=== PATIENT | female | born 1990 | race Caucasian/White ===

== ENCOUNTER → 2017-03-08 | Outpatient (CLI) | payer OTHER ==
--- NOTE | 2017-03-16 11:48 | REP ---
Clinical: Left lower quadrant pain . Technique: Transabdominal pelvic ultrasound followed by transvaginal examination for better evaluation of the endometrium and adnexa with color Doppler evaluation of the ovaries. Findings: Bladder is unremarkable and measures 9.0 x 6.4 x 6.3 cm . Normal anteverted uterus measures 7.8 x 4.0 x 4.3 cm . The endometrial complex measures 7.6 mm thickness. No discrete uterine or endometrial abnormalities are appreciated. Bilateral ovaries demonstrate normal vascularity without torsion. The right ovary is normal in appearance and measures 3.5 x 1.6 x 1.4 cm; RI = 0.59. Left ovary measures 4.7 x 3.8 x 3.8 cm and includes 3.3 cm hemorrhagic cyst and 3.3 cm simple cyst; RI = 0.63. Trace free fluid is nonspecific. No adnexal mass lesion. Impression: 1. 3.3 cm left hemorrhagic cyst and 3.3 cm left simple physiologic cyst. 2. Otherwise normal pelvic ultrasound. No torsion. Signed by David Huntley MD 03/16/2017 11:40 A
== END ==
LOC: M RAD 12:33
PROVIDERS: ATTEND Nurse Practitioner Women's Health
DX: R10.32 Left lower quadrant pain (principal); N83.202 Unspecified ovarian cyst, left side

== ENCOUNTER → 2017-03-29 | Outpatient (REF) | payer OTHER ==
[2017-03-29 16:19] LABS: BASO # 0.1 10^3/uL (0.0-0.2); BASO % 0.6 % (0.0-1.0); EOS # 0.1 10^3/uL (0.0-0.50); EOS % 1.5 % (0.0-3.0); IMMATURE GRANULOCYTE % 0.5 % (0-0); LYMPH # 3.2 10^3/uL (1.5-6.5); LYMPH % 38.5 % (24.0-44.0); MEAN CORPUSCULAR HEMOGLOBIN 30.6 pg (27.0-33.0); MEAN CORPUSCULAR HGB CONC 33.9 g/dl (32.0-36.5); MEAN CORPUSCULAR VOLUME 90.3 fl (80.0-96.0); MONO # 0.5 10^3/uL (0.0-0.8); MONO % 6.5 % (0.0-5.0); NEUTROPHILS # 4.3 10^3/uL (1.8-7.7); NEUTROPHILS % 52.4 % (36.0-66.0); PLATELET COUNT, AUTOMATED 290 10^3/uL (150-450); RED CELL DISTRIBUTION WIDTH 12.5 % (11.5-14.5); WHITE BLOOD COUNT 8.2 10^3/uL (4.0-10.0)
== END ==
LOC: M SFHCPLAZ 13:48
PROVIDERS: ATTEND Nurse Practitioner Family
DX: K62.5 Hemorrhage of anus and rectum (principal)

== ENCOUNTER → 2017-04-27 | Outpatient (REF) | payer OTHER ==
[2017-04-27 13:01] LABS: CONTROL LINE HCG INT CTR LINE PRESENT
== END ==
LOC: M SFHCPLAZ 11:17
DX: N91.2 Amenorrhea, unspecified (principal)

== ENCOUNTER → 2017-12-16 | Outpatient (CLI) | payer OTHER ==
[2017-12-16 17:32] LABS: BASO % 0.2 % (0.0-1.0); EOS # 0.1 10^3/uL (0.0-0.50); EOS % 0.8 % (0.0-3.0); HEMATOCRIT 32.2 % (36.0-47.0); IMMATURE GRANULOCYTE % 0.5 % (0-3.0); LYMPH # 1.5 10^3/uL (1.5-6.5); LYMPH % 17.4 % (24.0-44.0); MEAN CORPUSCULAR HEMOGLOBIN 31.3 pg (27.0-33.0); MEAN CORPUSCULAR HGB CONC 34.2 g/dl (32.0-36.5); MEAN CORPUSCULAR VOLUME 91.7 fl (80.0-96.0); MONO # 0.4 10^3/uL (0.0-0.8); MONO % 4.6 % (0.0-5.0); NEUTROPHILS # 6.4 10^3/uL (1.8-7.7); NEUTROPHILS % 76.5 % (36.0-66.0); PLATELET COUNT, AUTOMATED 252 10^3/uL (150-450); RED BLOOD COUNT 3.51 10^6/uL (4.00-5.40); RED CELL DISTRIBUTION WIDTH 14.5 % (11.5-14.5); WHITE BLOOD COUNT 8.3 10^3/uL (4.0-10.0)
[2017-12-16 20:48] LABS: CHLAMYDIA DNA AMPLIFICATION NEGATIVE (NEGATIVE); GC DNA AMPLIFICATION NEGATIVE (NEGATIVE)
[2017-12-17 10:58] LABS: RUBELLA IgG QUALITATIVE IMMUNE (IMMUNE)
[2017-12-17 11:04] LABS: HBsAg Prenatal NEGATIVE (NEGATIVE)
[2017-12-17 11:30] LABS: HEPATITIS C VIRUS ABY INDEX 0.1 INDEX (<0.8)
[2017-12-17 11:31] LABS: HIV 1&2 SCREEN CENTAUR NEGATIVE (NEGATIVE)
== END ==
LOC: M WUC 13:26
DX: Z34.81 Encounter for supervision of other normal pregnancy, first trimester (principal); Z3A.13 13 weeks gestation of pregnancy

== ENCOUNTER → 2017-12-17 | Outpatient (CLI) | payer OTHER, SELFPAY | LOC: M RAD 09:23 | DX: Z34.92 Encounter for supervision of normal pregnancy, unspecified, second trimester (principal); Z36.89 Encounter for other specified antenatal screening; Z3A.18 18 weeks gestation of pregnancy | CPT/HCPCS: 76811 ==

== ENCOUNTER → 2018-01-07 | Outpatient (CLI) | payer OTHER | LOC: M RAD 10:55 | DX: Z34.82 Encounter for supervision of other normal pregnancy, second trimester (principal); Z3A.20 20 weeks gestation of pregnancy ==

== ENCOUNTER → 2018-02-05 | Outpatient (CLI) | payer OTHER ==
[2018-02-05 10:37] LABS: BASO % 0.6 % (0.0-1.0); EOS # 0.1 10^3/uL (0.0-0.50); EOS % 0.7 % (0.0-3.0); HEMATOCRIT 32.8 % (36.0-47.0); HEMOGLOBIN 11.2 g/dl (12.0-15.5); IMMATURE GRANULOCYTE % 0.6 % (0-3.0); LYMPH # 1.4 10^3/uL (1.5-6.5); LYMPH % 19.8 % (24.0-44.0); MEAN CORPUSCULAR HEMOGLOBIN 32.6 pg (27.0-33.0); MEAN CORPUSCULAR HGB CONC 34.1 g/dl (32.0-36.5); MEAN CORPUSCULAR VOLUME 95.3 fl (80.0-96.0); MONO # 0.3 10^3/uL (0.0-0.8); MONO % 4.8 % (0.0-5.0); NEUTROPHILS # 5.2 10^3/uL (1.8-7.7); NEUTROPHILS % 73.5 % (36.0-66.0); PLATELET COUNT, AUTOMATED 243 10^3/uL (150-450); RED BLOOD COUNT 3.44 10^6/uL (4.00-5.40); RED CELL DISTRIBUTION WIDTH 14.2 % (11.5-14.5); WHITE BLOOD COUNT 7.1 10^3/uL (4.0-10.0)
[2018-02-05 11:00] LABS: GLUCOSE CHALLENGE TEST 1 HOUR 133 MG/DL (LESS THAN 140)
== END ==
LOC: M LAB 08:23
DX: Z34.82 Encounter for supervision of other normal pregnancy, second trimester (principal); Z3A.00 Weeks of gestation of pregnancy not specified
CPT/HCPCS: 82950

== ENCOUNTER → 2018-02-13 | Outpatient (CLI) | payer OTHER ==
[2018-02-13 09:44] LABS: GLUCOSE, FASTING 83 MG/DL (LESS THAN 95)
[2018-02-13 11:10] LABS: 2 HR GLUCOSE 153 MG/DL (LESS THAN 155)
[2018-02-13 11:11] LABS: 1 HR GLUCOSE 181 MG/DL (LESS THAN 180)
[2018-02-13 12:40] LABS: 3 HR GLUCOSE 60 MG/DL (LESS THAN 140)
== END ==
LOC: M LAB 08:24
DX: Z34.83 Encounter for supervision of other normal pregnancy, third trimester (principal); Z3A.00 Weeks of gestation of pregnancy not specified
CPT/HCPCS: 82951

== ENCOUNTER → 2018-03-11 | Outpatient (CLI) | payer OTHER | LOC: M LDO 12:55 | DX: O26.893 Other specified pregnancy related conditions, third trimester (principal); N89.8 Other specified noninflammatory disorders of vagina; Z3A.29 29 weeks gestation of pregnancy | CPT/HCPCS: 76815 ==

== ENCOUNTER → 2018-04-26 | Outpatient (REF) | payer OTHER ==
[~2018-04-26] MED LIST: MAPA500T2 PO; PRENTAB9 PO
== END ==
LOC: M LAB REF 12:53
PROVIDERS: ATTEND Obstetrics & Gynecology
DX: Z34.83 Encounter for supervision of other normal pregnancy, third trimester (principal)

== ENCOUNTER 2018-05-28 10:14 | Inpatient (IN) | payer OTHER ==
[~2018-05-28] VITALS: Ht 162.6 cm; Wt 103.1 kg
[2018-05-28] VITALS (19 sets, daily range): BP systolic 94–156; BP diastolic 51–66
[2018-05-28 14:11] LABS: HEMATOCRIT 36.7 % (36.0-47.0); HEMOGLOBIN 12.3 g/dl (12.0-15.5); MEAN CORPUSCULAR HEMOGLOBIN 31.9 pg (27.0-33.0); MEAN CORPUSCULAR HGB CONC 33.5 g/dl (32.0-36.5); MEAN CORPUSCULAR VOLUME 95.3 fl (80.0-96.0); PLATELET COUNT, AUTOMATED 213 10^3/uL (150-450); RED BLOOD COUNT 3.85 10^6/uL (4.00-5.40); WHITE BLOOD COUNT 11.2 10^3/uL (4.0-10.0)
[2018-05-28] MEDS ORDERED: TUMS500C PO (15:54)
--- NOTE | 2018-05-28 18:48 | HPE ---
DATE OF ADMISSION: 05/28/2018 REASON FOR ADMISSION: Labor, premature rupture of membranes. HISTORY OF THE PRESENT ILLNESS: Mrs. Lopez is a 28-year-old 1, para 0, who presents at 40 weeks 6 days estimated gestational age by mid-trimester ultrasound with complaints of leakage of fluid. She reports leakage of fluid early this morning that has continued, along with some irregular contractions. She reports active movement. Denies any vaginal bleeding. Her course is only remarkable for late entry to care at approximately 16 weeks, otherwise it has been uncomplicated. She has had her visits following her initial appointment. PAST MEDICAL HISTORY: None. PAST SURGICAL HISTORY: Appendectomy and knee surgery. MEDICATIONS: Include vitamins. She has no known drug allergies. SOCIAL HISTORY: Denies any alcohol, tobacco, or drug use during her . PHYSICAL EXAMINATION: Vital signs are stable. She is afebrile. Category 1 heart rate tracing with contractions on tocometer. General appearance: Well appearing, in no acute distress. Her lungs are clear to auscultation bilaterally. Cardiovascular: Heart regular rate and rhythm. Her abdomen is gravid, nontender. Estimated weight 3800 grams. Cervical Exam: She is 1-2 cm dilated, 50% effaced, -2 station, grossly ruptured. LABORATORY: Her labs - blood type is A positive, antibody screen is negative. Rubella is immune. RPR is nonreactive. Hepatitis surface antigen is negative. HIV is negative. Hepatitis C is nonreactive. Chlamydia and gonorrhea screen is negative. She had an elevated 1-hour Glucola with a normal 3-hour glucose tolerance test, and she is GBS negative. ASSESSMENT: 1. Mrs. Lopez is a 28-year-old 1, para 0 at 40 weeks 6 days estimated gestational age with premature rupture of membranes. 2. Reassuring status. PLAN: 1. Admit to labor and delivery. CBC, RPR, type and screen. 2. Patient has been thoroughly counseled in regards to her diagnosis. I discussed medications as well as procedures performed in labor and delivery. We have discussed augmentation of labor, as well as she has been verbally consented for emergency surgery, blood products, anesthesia, and desires to proceed with admission.
[2018-05-28] MEDS ORDERED: OXYTOCIN DRIP 30 UNITS in APPROPRIATE DILUENT 1 EA IV SCH (20:00)
[2018-05-28] MEDS: LR 1,000 ML IV SCH (20:27)
[2018-05-28] MEDS ORDERED: BUTORPHANOL 2 MG/ML INJ (J0595) IV ONE (23:00)
[2018-05-28] MEDS ORDERED: PROMETHAZINE INJ 25 MG/ML VIAL (J2550) IV PRN (23:00)
[2018-05-29] VITALS (48 sets, daily range): BP systolic 83–124; BP diastolic 44–80
[2018-05-29] MEDS: LR 1,000 ML IV SCH ×4 (09:16→22:18)
[2018-05-29] MEDS ORDERED: BUTORPHANOL 2 MG/ML INJ (J0595) As Ordered ONE (12:54)
[2018-05-29] MEDS ORDERED: PROMETHAZINE INJ 25 MG/ML VIAL (J2550) IV ONE (13:00)
[2018-05-29] MEDS ORDERED: BUTORPHANOL 2 MG/ML INJ (J0595) IV ONE (13:00)
--- NOTE | 2018-05-29 16:07 | IPNPDOC ---
Obstetrical Progress Note Date of Service May 29, 2018 Subjective Patient reports she is coping with her contractions with Stadol and Phenergan at this time. Objective Vital Signs Date Time Temp Pulse Resp B/P (MAP) Pulse Ox O2 Delivery O2 Flow Rate FiO2 05/29/18 13:26 52 16 91/49 05/29/18 13:09 97.6 98 Assessment Heart Rate (FHR): 120 Variability: Moderate Accelerations: Positive Decelerations: None Heart Rate Tracing: Category I Tocometer Contractions: Yes Frequency: other (2-4 minutes) Sterile Vaginal Examination Dilation: 3 cm Effacement (%): 90% Station: -2 Cervical Consistency: Soft Cervical Position: Anterior Postion/Presentation: Cephalic presentation Assessment and Plan Age: 28 : 1 Term: 0 Pre-term: 0 Abortions: 0 Livin EGA at Admission: 40.4 Status: Reassuring Group B Streptococcus: Negative Anticipate: Vaginal Delivery Additional Comments Pitocin at 12 mu/min. Vaginal exam done at 1130. Forebag rupture to a large amount of clear fluid. RODRIGO LEE CNM May 29, 2018 16:07
--- NOTE | 2018-05-29 18:26 | IPNPDOC ---
Obstetrical Progress Note Date of Service May 29, 2018 Subjective Patient requesting an epidural. Objective Vital Signs Date Time Temp Pulse Resp B/P (MAP) Pulse Ox O2 Delivery O2 Flow Rate FiO2 05/29/18 16:27 97.9 56 16 100/59 (73) 05/29/18 13:09 98 Assessment Heart Rate (FHR): 120 Variability: Moderate Accelerations: Positive Decelerations: None Heart Rate Tracing: Category I Tocometer Contractions: Yes Frequency: regular Strength: palpated as mild Sterile Vaginal Examination Dilation: 4 cm Effacement (%): 90% Station: -2 Cervical Consistency: Soft Cervical Position: Anterior Postion/Presentation: Cephalic presentation Assessment and Plan Age: 28 : 1 Term: 0 Pre-term: 0 Abortions: 0 Livin EGA at Admission: 40.6 Weeks & Days 41.0 weeks today. Status: Reassuring Group B Streptococcus: Negative Additional Comments Pitocin at 12 mu/min. Moderate amount of meconium fluid noted now. Patient is a very difficult exam and doesn't tolerate a cervical exam well. RODRIGO LEE CNM May 29, 2018 18:26
[2018-05-29] MEDS ORDERED: FENTANYL 2MCG/ML ROPIVACAINE 0.2% IN 0.9% NACL 100ML IVBAG As Ordered ONE (18:31)
[2018-05-29] MEDS ORDERED: EPIDURAL COMMENT XX SCH (20:15)
[2018-05-29] MEDS ORDERED: ePHEDrine SULFATE 25 MG/5 ML(5MG/ML) SYRINGE IV PRN (20:15)
[2018-05-29] MEDS ORDERED: FENTANYL/ROPIVACAINE/NACL BAG 100 ML EPIDURAL SCH (20:15)
[2018-05-29] MEDS ORDERED: diphenhydrAMINE INJ 50MG/ML VIAL (J1200) IV PRN (20:15)
[2018-05-29] MEDS ORDERED: NALOXONE INJ 0.4 MG/1 ML VIAL (J2310) IV PRN (20:15)
[2018-05-29] MEDS ORDERED: EPIDURAL/PCA KEYS XX PRN (20:15)
[2018-05-29] MEDS ORDERED: REFRIGERATOR IV KEYS XX PRN (20:15)
[2018-05-29] MEDS ORDERED: LACTATED RINGER'S 1000 ML IV PRN (20:15)
[2018-05-29] MEDS ORDERED: ONDANSETRON 4MG/2ML VIAL (J2405) IV PRN ×3 (20:15→22:45)
[2018-05-29] MEDS ORDERED: ceFAZolin 2 GM/D5W 50 ML IV BAG (J0690 PER 500MG) As Ordered ONE (21:09)
[2018-05-29] MEDS ORDERED: BICITRA 30ML SOLN UDC As Ordered ONE (21:09)
[2018-05-29] MEDS ORDERED: LIDOCAINE 2% W/EPIN INJ 20ML **PRES FREE As Ordered ONE (21:16)
[2018-05-29] MEDS ORDERED: ONDANSETRON 4MG/2ML VIAL (J2405) As Ordered ONE (21:19)
[2018-05-29] MEDS ORDERED: OXYTOCIN INJ 10 UNITS/ML VIAL (J2590) As Ordered ONE (21:19)
[2018-05-29] MEDS ORDERED: MORPHINE PRES-FREE INJ 10 MG/10 ML VIAL (J2274) As Ordered ONE (21:40)
[2018-05-29] MEDS ORDERED: SODIUM BICARBONATE 8.4% INJ 50 ML SYRINGE As Ordered ONE (21:44)
[2018-05-29] MEDS ORDERED: PHENYLephrine HCL 500 MCG/5 ML (100MCG/ML) SYRINGE (J2370) As Ordered ONE (21:48)
[2018-05-29] MEDS ORDERED: fentaNYL 100 MCG/2 ML INJECTION (J3010) As Ordered ONE (21:48)
[2018-05-29] MEDS ORDERED: OXYTOCIN 30 UNITS IN 0.9% NaCl 500ML IV BAG (J2590) As Ordered ONE (21:49)
[2018-05-29] MEDS ORDERED: KETOROLAC 60 MG/2 ML VIAL (J1885) As Ordered ONE (21:49)
[2018-05-29] MEDS ORDERED: OXYTOCIN DRIP 30 UNITS in APPROPRIATE DILUENT 1 EA IV SCH (22:18)
[2018-05-29] MEDS ORDERED: IBUP1TAB7 PO (22:21)
[2018-05-29] MEDS ORDERED: PERC5TAB12 PO (22:23)
[2018-05-29] MEDS ORDERED: RHOGAM 300 MCG (1500 IU) INJ (J2790) IM SCH (22:30)
[2018-05-29] MEDS ORDERED: KETOROLAC 30 MG/ML VIAL (J1885) IV SCH (22:30)
[2018-05-29] MEDS ORDERED: MEASLES,MUMPS,RUBELLA VACCINE INJ (MMR-II) (90707) SC SCH (22:30)
[2018-05-29] MEDS ORDERED: METHYLERGONOVINE MALEATE 0.2 MG/ML VIAL (J2210) IM PRN (22:30)
[2018-05-29] MEDS ORDERED: BICITRA 30ML SOLN UDC PO ONE (22:45)
[2018-05-29] MEDS ORDERED: NORCO, ANEXSIA 5/325MG TABLET (HYDROcodone/ACETAMINOPHEN) PO PRN (22:45)
[2018-05-29] MEDS ORDERED: fentaNYL 100 MCG/2 ML INJECTION (J3010) IV PRN (22:45)
--- NOTE | 2018-05-29 23:20 | RO ---
DATE OF PROCEDURE: 05/29/2018 PREPROCEDURE DIAGNOSIS: Term . Arrest of dilation. POSTPROCEDURE DIAGNOSIS: Term . Arrest of dilatation. PROCEDURE: Primary low transverse section. SURGEON: Malik Medrano MD TILT WALL SUPERVISOR: Goldie Barba CNM ANESTHESIA: Epidural. ESTIMATED BLOOD LOSS: About 600 mL. URINE OUTPUT: 250 mL FINDINGS: 8 pound 1 ounce, 3660 gram male , 8 and 9. Normal uterus, fallopian tubes and ovaries. OPERATIVE SUMMARY: The patient was taken to the operating room. When epidural anesthesia was adequate she was prepped and draped in a sterile fashion in the supine position. A Mclean catheter was already in place. A Pfannenstiel skin incision was made with a scalpel and continued through to the fascia. The fascia was nicked and extended. The fascia was dissected off the rectus muscles. Peritoneal cavity was entered. Bladder flap was created. A uterine incision was created in lower transverse fashion. This was extended manually The infant was delivered from the vertex position without difficulty. The cord was doubly clamped and cut. The was handed off to waiting nurses. The placenta was expressed. The uterus was exteriorized and cleared of clots and debris. Uterine incision was closed with #0 Vicryl in a running locked fashion. A second imbricated layer of #0 Vicryl was placed. The uterus was placed back in the abdominal cavity. Peritoneum was closed with #2-0 Vicryl in a running fashion. The fascia was closed with #0 Vicryl in a running fashion. The deep layer was irrigated and closed with ##2-0 chromic. Skin was closed with #4-0 Monocryl subcuticular sutures. Sponge, instrument and needle counts were correct. Goldie Barba CNM assisted with all aspects of the procedure from beginning to end. She assisted with creating all layers of the abdomen as well as hysterotomy. She assisted with expulsion of the fetus and closure of all subsequent layers. JODY
[2018-05-29] MEDS ORDERED: PERCOCET 5MG/325MG TAB As Ordered ONE (23:48)
[2018-05-29] MEDS: PERCOCET 5MG/325MG TAB PO PRN (23:51)
[2018-05-30 04:00] VITALS: BP 118/56
[2018-05-30] MEDS: KETOROLAC 30 MG/ML VIAL (J1885) IV SCH ×3 (04:37→16:02)
[2018-05-30] MEDS: PERCOCET 5MG/325MG TAB PO PRN (04:40)
[2018-05-30 07:02] LABS: HEMATOCRIT 28.1 % (36.0-47.0); HEMOGLOBIN 9.3 g/dl (12.0-15.5); MEAN CORPUSCULAR HEMOGLOBIN 32.2 pg (27.0-33.0); MEAN CORPUSCULAR HGB CONC 33.1 g/dl (32.0-36.5); MEAN CORPUSCULAR VOLUME 97.2 fl (80.0-96.0); PLATELET COUNT, AUTOMATED 175 10^3/uL (150-450); RED BLOOD COUNT 2.89 10^6/uL (4.00-5.40); WHITE BLOOD COUNT 12.6 10^3/uL (4.0-10.0)
[2018-05-30 07:25] VITALS: BP 108/51
[2018-05-30] MEDS: LR 1,000 ML IV SCH ×2 (08:20→14:18)
[2018-05-30] MEDS: PRENATAL VITAMINS CHEWABLE TABLET PO SCH (09:45)
[2018-05-30 11:37] VITALS: BP 111/58
[2018-05-30 16:04] VITALS: BP 102/58
[2018-05-30 18:07] VITALS: BP 117/65
[2018-05-30 22:26] VITALS: BP 115/53
[2018-05-31] MEDS: DOCUSATE SODIUM 100 MG CAP PO PRN (00:38)
[2018-05-31] MEDS: IBUPROFEN 800 MG TAB PO SCH ×4 (00:38→23:52)
[2018-05-31] MEDS: PERCOCET 5MG/325MG TAB PO PRN ×2 (00:55→14:39)
[2018-05-31] MEDS: PRENATAL VITAMINS CHEWABLE TABLET PO SCH (08:00)
[2018-05-31] MEDS: LR 1,000 ML IV SCH (11:55)
[2018-05-31] MEDS ORDERED: ONDANSETRON 4 MG TAB (S0181) PO PRN (15:45)
[2018-05-31 18:18] VITALS: BP 138/66
[2018-06-01] MEDS: DOCUSATE SODIUM 100 MG CAP PO PRN (02:00)
[2018-06-01] MEDS: PERCOCET 5MG/325MG TAB PO PRN (03:34)
[2018-06-01 06:12] VITALS: BP 106/59
--- NOTE | 2018-06-01 07:01 | DS.PDOC ---
Discharge Summary General Date of Admission May 28, 2018 at 13:23 Date of Discharge 06/01/18 Discharge Summary PROCEDURES PERFORMED DURING STAY: Primary section. ADMITTING DIAGNOSES: 1. PROM at term. DISCHARGE DIAGNOSES: 1. PROM at term 2. Arrest of dilation 3. Primary section COMPLICATIONS/CHIEF COMPLAINT: SROM. HISTORY OF PRESENT ILLNESS: 28yo G1 [place] 05/22/18. Admitted 05/28/18 with reports of rupture of membranes without labor. HOSPITAL COURSE: Pitocin augmentation of labor. Pt utilized an epidural for labor coping. A primary section was performed 05/29/18 for prolonged rupture of membranes and arrest of dilation and descent. She is OOB independently, tolerating a regular diet, voiding and passing flatus. DISCHARGE MEDICATIONS: Please see below. ALLERGIES: Please see below. PHYSICAL EXAMINATION ON DISCHARGE: VITAL SIGNS: Please see below. GENERAL: NAD HEENT: WNL NECK: Supple CARDIOVASCULAR EXAMINATION: HRR, normotensive RESPIRATORY EXAMINATION: Easy, clear ABDOMINAL EXAMINATION: Fundus firm, dressing intact EXTREMITIES: Equal strength and motion SKIN: Intact NEUROLOGICAL EXAMINATION: Intact PSYCHIATRIC EXAMINATION: Appropriate LABORATORY DATA: Please see below. PROGNOSIS: Good ACTIVITY: As tolerated DIET: Regular DISCHARGE PLAN: Home. Routine precautions. DISPOSITION: Home. DISCHARGE INSTRUCTIONS: 1. Routine precautions. Call with fever, N/V/chills foul lochia or wound exuda te. Remove dressing as instructed by surgeon. Nothing vaginally x 6wks. RTO 2wks and 6 wks DISCHARGE CONDITION: Stable Vital Signs/I&Os Vital Signs Date Time Temp Pulse Resp B/P (MAP) Pulse Ox O2 Delivery O2 Flow Rate FiO2 06/01/18 06:12 98.8 53 16 106/59 (75) 05/30/18 22:26 99 Discharge Medications Scheduled Multivitamins/ ( 27-0.8 mg) 1 Tab Tab, 1 TAB PO DAILY, (Reported) Scheduled PRN Calcium Carbonate (Tums) 500 Mg Chw, 2 TAB PO Q4H PRN for HEARTBURN, (Reported) Ibuprofen (Ibuprofen) 800 Mg Tab, 1 TAB PO TIDP PRN for PAIN Oxycodone/Acetaminophen (Percocet 5-325 mg) 1 Tab Tab, 1 TAB PO TIDP PRN for pain Allergies Coded Allergies: No Known Allergies (Unverified , 03/11/18) Ebony Gee CNM Jun 01, 2018 06:52
[2018-06-01] MEDS: IBUPROFEN 800 MG TAB PO SCH (07:54)
[2018-06-01] MEDS: PRENATAL VITAMINS CHEWABLE TABLET PO SCH (07:54)
[2018-06-01] MEDS ORDERED: OXYC1TAB23 PO (10:12)
== END 2018-06-01 11:40 | disposition home or self-care (01) | DRG 773 ==
LOC: M LDO 10:14 → M LDI 13:23 → M OBS 05-30 16:43
PROVIDERS: ADMIT Obstetrics & Gynecology; ATTEND Obstetrics & Gynecology
PROC: 10D00Z1 Extraction of Products of Conception, Low, Open Approach (ICD-10-PCS; principal; 2018-05-29 21:27)
DX: O42.02 Full-term premature rupture of membranes, onset of labor within 24 hours of rupture (principal); O48.0 Post-term pregnancy; Z37.0 Single live birth; Z3A.40 40 weeks gestation of pregnancy; O62.0 Primary inadequate contractions; O32.4XX0 Maternal care for high head at term, not applicable or unspecified

== ENCOUNTER 2018-10-18 15:51 | Emergency (ER) | payer OTHER ==
[~2018-10-18] VITALS: Ht 162.6 cm; Wt 90.9 kg
[~2018-10-18 15:51] MED LIST changes: +IBUP1TAB7 PO; +OXYC1TAB23 PO; +PERC5TAB12 PO; +TUMS500C PO
[2018-10-18] MEDS ORDERED: NS 1,000 ML IV ONE (19:45)
[2018-10-18] MEDS ORDERED: ONDANSETRON 4MG/2ML VIAL (J2405) IV ONE (19:45)
[2018-10-18] MEDS ORDERED: ZOFR4TAB16 PO (21:04)
[2018-10-18] MEDS ORDERED: DICY10CA13 PO (21:04)
[2018-10-18 21:14] VITALS: BP 114/71
== END 2018-10-18 21:16 | disposition home or self-care (01) ==
LOC: M ED 15:51
DX: A08.32 Astrovirus enteritis (principal)
CPT/HCPCS: 84702; 87507; 96374; 99284; J2405

== ENCOUNTER → 2018-12-10 | Outpatient (CLI) | payer OTHER ==
[~2018-12-10] MED LIST changes: +DICY10CA13 PO; +ZOFR4TAB16 PO
[2018-12-10 13:35] LABS: BASO # 0.1 10^3/uL (0.0-0.2); BASO % 0.8 % (0.0-1.0); EOS # 0.1 10^3/uL (0.0-0.50); EOS % 2.1 % (0.0-3.0); HEMATOCRIT 40.9 % (36.0-47.0); HEMOGLOBIN 13.8 g/dl (12.0-15.5); LYMPH # 2.2 10^3/uL (1.5-6.5); LYMPH % 32.5 % (24.0-44.0); MEAN CORPUSCULAR HEMOGLOBIN 30.7 pg (27.0-33.0); MEAN CORPUSCULAR HGB CONC 33.7 g/dl (32.0-36.5); MEAN CORPUSCULAR VOLUME 90.9 fl (80.0-96.0); MONO # 0.4 10^3/uL (0.0-0.8); MONO % 5.7 % (0.0-5.0); NEUTROPHILS # 3.9 10^3/uL (1.8-7.7); NEUTROPHILS % 58.6 % (36.0-66.0); PLATELET COUNT, AUTOMATED 262 10^3/uL (150-450); WHITE BLOOD COUNT 6.6 10^3/uL (4.0-10.0)
[2018-12-10 14:07] LABS: ALBUMIN 3.6 GM/DL (3.2-5.2); ALT/SGPT 10 U/L (12-78); BILIRUBIN,TOTAL 1.4 MG/DL (0.2-1.0); BLOOD UREA NITROGEN 10 MG/DL (7-18); CARBON DIOXIDE LEVEL 29 MEQ/L (21-32); CHLORIDE LEVEL 109 MEQ/L (98-107); CHOLESTEROL LEVEL 214 MG/DL (<200); CHOLESTEROL RISK RATIO 4.553 (<5); CREATININE FOR GFR 0.68 MG/DL (0.55-1.30); FREE T4 0.98 NG/DL (0.76-1.46); GLOMERULAR FILTRATION RATE > 60.0 (>60); GLUCOSE, FASTING 83 MG/DL (70-100); HDL CHOLESTEROL 47 MG/DL (>40); LDL CHOLESTEROL 137 MG/DL (<100); NON-HDL-C 167 MG/DL; POTASSIUM SERUM 4.2 MEQ/L (3.5-5.1); SODIUM LEVEL 141 MEQ/L (136-145); TOTAL PROTEIN 7.8 GM/DL (6.4-8.2); TRIGLYCERIDES LEVEL 152 MG/DL (<150)
[2018-12-10 14:22] LABS: HEMOGLOBIN A1c 4.4 %
== END ==
LOC: M LAB 13:00
PROVIDERS: ATTEND Physician Assistant Medical
DX: E66.01 Morbid (severe) obesity due to excess calories (principal); Z13.220 Encounter for screening for lipoid disorders
CPT/HCPCS: 36415; 80053; 80061; 83036; 84439; 84443; 85025; 86787; G0463

== ENCOUNTER → 2019-09-29 | Outpatient (REF) | payer OTHER ==
[2019-09-29 10:47] LABS: BASO # 0.1 10^3/uL (0.0-0.2); BASO % 0.7 % (0.0-1.0); EOS # 0.2 10^3/uL (0.0-0.5); HEMATOCRIT 43.5 % (36.0-47.0); HEMOGLOBIN 14.9 g/dl (12.0-15.5); LYMPH # 2.2 10^3/uL (1.5-5.0); LYMPH % 29.2 % (24.0-44.0); MEAN CORPUSCULAR HGB CONC 34.3 g/dl (32.0-36.5); MEAN CORPUSCULAR VOLUME 90.4 fl (80.0-96.0); MONO # 0.4 10^3/uL (0.0-0.8); MONO % 5.6 % (0.0-5.0); NEUTROPHILS # 4.6 10^3/uL (1.5-8.5); NEUTROPHILS % 62.2 % (36.0-66.0); PLATELET COUNT, AUTOMATED 297 10^3/uL (150-450); RED BLOOD COUNT 4.81 10^6/uL (4.00-5.40); WHITE BLOOD COUNT 7.4 10^3/uL (4.0-10.0)
[2019-09-29 11:03] LABS: ALBUMIN 3.7 GM/DL (3.2-5.2); ALT/SGPT 11 U/L (12-78); BILIRUBIN,TOTAL 0.5 MG/DL (0.2-1.0); BLOOD UREA NITROGEN 11 MG/DL (7-18); CARBON DIOXIDE LEVEL 27 MEQ/L (21-32); CHLORIDE LEVEL 106 MEQ/L (98-107); CHOLESTEROL LEVEL 208 MG/DL (<200); CHOLESTEROL RISK RATIO 4.425 (<5); CREATININE FOR GFR 0.83 MG/DL (0.55-1.30); FREE T4 1.13 NG/DL (0.76-1.46); GLOMERULAR FILTRATION RATE > 60.0 (>60); GLUCOSE, FASTING 86 MG/DL (70-100); HDL CHOLESTEROL 47 MG/DL (>40); LDL CHOLESTEROL 134 MG/DL (<100); NON-HDL-C 161 MG/DL; POTASSIUM SERUM 4.1 MEQ/L (3.5-5.1); SODIUM LEVEL 140 MEQ/L (136-145); TOTAL PROTEIN 7.8 GM/DL (6.4-8.2); TRIGLYCERIDES LEVEL 135 MG/DL (<150)
[2019-09-29 11:12] LABS: HEMOGLOBIN A1c 4.2 %
== END ==
LOC: M SFHCPLAZ 08:03
PROVIDERS: ATTEND Physician Assistant Medical
DX: E66.01 Morbid (severe) obesity due to excess calories (principal); Z13.220 Encounter for screening for lipoid disorders; N91.2 Amenorrhea, unspecified

== ENCOUNTER → 2019-10-23 | Outpatient (REF) | payer OTHER | LOC: M SFHCWAGY 10:43 | PROVIDERS: ATTEND Advanced Practice Midwife | DX: Z12.4 Encounter for screening for malignant neoplasm of cervix (principal) | CPT/HCPCS: 87624; G0123; G0463 ==

== ENCOUNTER 2024-08-28 06:05 | Observation (INO) | payer OTHER ==
[2024-08-28] VITALS (8 sets, daily range): BP systolic 94–114; BP diastolic 55–65; TEMP 97.3–97.5; O2SAT 94–99
[~2024-08-28] VITALS: Ht 162.6 cm; Wt 83.2 kg
[~2024-08-28 06:05] MED LIST changes: +DICY-61 PO; -DICY10CA13 PO; +SEMA0.257 SQ; +SYNT25TA PO
[2024-08-28] MEDS: LR 1,000 ML IV SCH ×2 (06:30→11:40)
[2024-08-28] MEDS: BUPivacaine LIPOSOME/PF 266MG 20ML VIAL (13.3MG/ML)(EXPAREL) As Ordered ONE (07:15)
[2024-08-28] MEDS ORDERED: ROCURONIUM BROMIDE 50MG/5ML VIAL As Ordered ONE (07:21)
[2024-08-28] MEDS ORDERED: propofoL 200 MG/20 ML VIAL As Ordered ONE (07:21)
[2024-08-28] MEDS ORDERED: ONDANSETRON 4MG 2ML VIAL As Ordered ONE (07:21)
[2024-08-28] MEDS ORDERED: LIDOCAINE 2% 100MG/5ML SDV (FOR ANES.) As Ordered ONE (07:21)
[2024-08-28] MEDS ORDERED: MIDAZOLAM INJ 2MG/2ML VIAL As Ordered ONE (07:22)
[2024-08-28] MEDS ORDERED: dexmedeTOMIDine (4MCG/ML)200MCG/50ML BTL (PRECEDEX) As Ordered ONE (07:22)
[2024-08-28] MEDS ORDERED: fentaNYL 250 MCG/5 ML INJECTION As Ordered ONE (07:22)
[2024-08-28] MEDS: HEPARIN SOD (PORCINE) 5000UNITS/ML 1ML VIAL/SYRINGE SQ ONE (07:50)
[2024-08-28] MEDS ORDERED: LACRILUBE (AKWA TEARS) OPHTH OINT 3.5GM As Ordered ONE (07:52)
[2024-08-28] MEDS: ceFAZolin SOD 2 GM IV ONCE IV ONE (07:53)
[2024-08-28] MEDS ORDERED: ACETAMINOPHEN 1000MG/100ML IV BAG As Ordered ONE (08:03)
[2024-08-28] MEDS ORDERED: SUGAMMADEX SODIUM 500 MG/5 ML VIAL (BRIDION) As Ordered ONE (08:28)
[2024-08-28] MEDS ORDERED: METOCLOPRAMIDE INJ 10MG/2ML VIAL As Ordered ONE (08:30)
[2024-08-28] MEDS ORDERED: HYDROmorphone HCL 2MG/ML 1ML VIAL As Ordered ONE (08:39)
[2024-08-28] MEDS ORDERED: ePHEDrine SULFATE 25 MG/5 ML(5MG/ML) SYRINGE As Ordered ONE (08:55)
[2024-08-28] MEDS: GENTAMICIN SULF 80MG/2ML VIAL As Ordered ONE (09:07)
[2024-08-28] MEDS ORDERED: fentaNYL 100 MCG/2 ML INJECTION IV PRN (11:35)
[2024-08-28] MEDS ORDERED: MORPHINE 2 MG/ML 1ML VIAL IV PRN (11:35)
[2024-08-28] MEDS ORDERED: oxyCODONE 5MG TAB PO PRN (11:35)
[2024-08-28] MEDS ORDERED: PERCOCET 5MG/325MG TAB PO PRN (11:40)
[2024-08-28] MEDS ORDERED: ONDANSETRON 4MG 2ML VIAL IV PRN (11:40)
[2024-08-28] MEDS: ONDANSETRON 4MG 2ML VIAL IV PRN (12:20)
[2024-08-28] MEDS: PROMETHAZINE 25MG/ML 1ML VIAL IV PRN (12:38)
[2024-08-28] MEDS: traMADol 50 MG TAB PO PRN (12:39)
[2024-08-28] MEDS ORDERED: MULTIVITAMIN GUMMY (14:00)
[2024-08-28] MEDS ORDERED: MULTCHW12 PO (14:01)
[2024-08-28] MEDS ORDERED: HOME MED LIST COMPLETE! XX SCH (14:05)
[2024-08-28] MEDS: ceFAZolin SODIUM 2 GM in DEXTROSE 5% (D5W) ADV/MINI-BAG 50 ML IV SCH (15:46)
[2024-08-29 00:05] VITALS: BP 99/54; TEMP 97.3; O2SAT 98
[2024-08-29] MEDS: ACETAMINOPHEN 325 MG TAB PO PRN (03:34)
[2024-08-29 04:07] VITALS: BP 99/59; TEMP 97.7; O2SAT 97
[2024-08-29] MEDS: LEVOTHYROXINE 25MCG TABLET (0.025MG) PO SCH (07:10)
[2024-08-29] MEDS ORDERED: ONDA-83 PO (10:39)
[2024-08-29] MEDS ORDERED: TRAM50TA2 PO (10:39)
[2024-08-29 12:00] VITALS: BP 95/58; TEMP 97.5; O2SAT 96
== END 2024-08-29 13:00 | disposition home or self-care (01) ==
LOC: M SDC 06:05 → M RR INP 06:06 → M MS5PR 13:40
PROVIDERS: ADMIT Plastic Surgery Surgery of the Hand; ATTEND Plastic Surgery Surgery of the Hand
DX: N62 Hypertrophy of breast (principal); E03.9 Hypothyroidism, unspecified; R51.9 Headache, unspecified; Z79.899 Other long term (current) drug therapy
CPT/HCPCS: 19318; 81025; 88305; 96365; 96366; J0131; J0665; J0666; J0690; J1100; J1171; J1580; J2250; J2405; J2550; J2765; J3010

== ENCOUNTER → 2025-01-01 | Outpatient (RCR) ==
[~2025-01-01] MED LIST changes: +MULTCHW12 PO; +MULTIVITAMIN GUMMY; +ONDA-83 PO; +TRAM50TA2 PO
== END ==
LOC: M EMPSSV 12-25 10:31
PROVIDERS: ATTEND Family Medicine
DX: Z20.828 Contact with and (suspected) exposure to other viral communicable diseases (principal)